=== PATIENT | female | born 1960 | race Caucasian/White ===

== ENCOUNTER 2018-10-25 17:19 | Emergency (ER) | payer OTHER ==
[~2018-10-25] VITALS: Ht 149.9 cm; Wt 46.3 kg
[2018-10-25 18:04] VITALS: Ht 149.9 cm; Wt 46.3 kg
[2018-10-25 20:43] VITALS: BP 126/78
== END 2018-10-25 20:43 | disposition home or self-care (01) ==
LOC: ED 17:19
DX: S23.3XXA Sprain of ligaments of thoracic spine, initial encounter (principal); S16.1XXA Strain of muscle, fascia and tendon at neck level, initial encounter; S09.8XXA Other specified injuries of head, initial encounter; Z88.6 Allergy status to analgesic agent; W22.8XXA Striking against or struck by other objects, initial encounter; Y93.89 Activity, other specified; Y92.89 Other specified places as the place of occurrence of the external cause; Y99.0 Civilian activity done for income or pay
CPT/HCPCS: 72072